=== PATIENT | male | born 1960 | race Caucasian/White ===

== ENCOUNTER 2023-04-30 08:46 | Day surgery (SDC) | payer MEDICAID, OTHER ==
[~2023-04-30] VITALS: Ht 172.7 cm; Wt 77.1 kg
[2023-04-30] MEDS ORDERED: DIPHENHYDRAMINE INJ 50 MG/ML VIAL ONE (08:56)
[2023-04-30] MEDS ORDERED: MIDAZOLAM HCL 5 MG/5 ML VIAL ONE (08:56)
[2023-04-30] MEDS ORDERED: ONDANSETRON HCL 4 MG/2 ML VIAL ONE (08:56)
[2023-04-30] MEDS ORDERED: fentaNYL CITRATE/PF 100 MCG/2 ML AMP ONE (08:56)
[2023-04-30] MEDS ORDERED: NORMAL SALINE 10 ML VIAL ONE (09:00)
[2023-04-30] MEDS ORDERED: methylPREDNISolone ACETATE 40 MG/ML ONE (09:00)
[2023-04-30] MEDS ORDERED: LIDOCAINE 2%, 20 ML MDV ONE (09:00)
[2023-04-30] MEDS ORDERED: ISOVUE-300 (IOPAMIDOL) 100 ML INFUS..BTL IV ONE (09:00)
[2023-05-01 12:52] VITALS: BP_SYST 127
== END 2023-04-30 14:14 | disposition home or self-care (01) ==
LOC: SDS 08:46 → SMU 08:47 → SDS 14:14
PROVIDERS: ATTEND Internal Medicine
DX: M51.16 Intervertebral disc disorders with radiculopathy, lumbar region (principal); M51.9 Unspecified thoracic, thoracolumbar and lumbosacral intervertebral disc disorder; M50.90 Cervical disc disorder, unspecified, unspecified cervical region; Z79.899 Other long term (current) drug therapy
CPT/HCPCS: 62323; J1200; J2001; J1030; J2250; J3010; Q9967; 76000; J2405

== ENCOUNTER 2023-07-09 07:35 | Day surgery (SDC) | payer OTHER ==
[~2023-07-09] VITALS: Ht 172.7 cm; Wt 77.1 kg
[2023-07-09] MEDS ORDERED: DIPHENHYDRAMINE INJ 50 MG/ML VIAL ONE (07:55)
[2023-07-09] MEDS ORDERED: fentaNYL CITRATE/PF 100 MCG/2 ML AMP ONE (07:55)
[2023-07-09] MEDS ORDERED: ONDANSETRON HCL 4 MG/2 ML VIAL ONE (07:55)
[2023-07-09 09:47] VITALS: O2SAT 100
[2023-07-09] MEDS: MIDAZOLAM HCL 5 MG/5 ML VIAL ONE ×3 (11:00→11:06)
[2023-07-09 14:33] VITALS: BP_SYST 131; PULSE 76; RESP 18
== END 2023-07-09 11:55 | disposition home or self-care (01) ==
LOC: SDS 07:35 → SMU 07:36 → SDS 11:55
PROVIDERS: ATTEND Internal Medicine
DX: M51.16 Intervertebral disc disorders with radiculopathy, lumbar region (principal); M50.90 Cervical disc disorder, unspecified, unspecified cervical region; Z79.899 Other long term (current) drug therapy
CPT/HCPCS: 64483; J2250; J3010; 76000; J1200; J2405

== ENCOUNTER 2023-12-03 09:23 | Day surgery (SDC) | payer OTHER ==
[~2023-12-03] VITALS: Ht 172.7 cm; Wt 78.0 kg
[2023-12-03] MEDS ORDERED: fentaNYL CITRATE/PF 100 MCG/2 ML AMP ONE (12:03)
[2023-12-03] MEDS ORDERED: DIPHENHYDRAMINE INJ 50 MG/ML VIAL ONE (12:03)
[2023-12-03 12:10] VITALS: O2SAT 100
[2023-12-03] MEDS: MIDAZOLAM HCL 5 MG/5 ML VIAL ONE ×2 (12:39→12:41)
== END 2023-12-03 13:15 | disposition home or self-care (01) ==
LOC: SDS 09:23
PROVIDERS: ATTEND Internal Medicine
DX: M51.16 Intervertebral disc disorders with radiculopathy, lumbar region (principal); M51.9 Unspecified thoracic, thoracolumbar and lumbosacral intervertebral disc disorder; M50.90 Cervical disc disorder, unspecified, unspecified cervical region; M79.10 Myalgia, unspecified site; Z79.899 Other long term (current) drug therapy
CPT/HCPCS: 62323; J2250; J3010; 76000; J1200